=== PATIENT | male | born 1960 | race Caucasian/White ===

== ENCOUNTER → 2018-01-01 | Outpatient (CLI) | payer OTHER | LOC: CIMAGING 13:50 | PROVIDERS: ATTEND Family Medicine | DX: R07.9 Chest pain, unspecified (principal); R91.8 Other nonspecific abnormal finding of lung field | CPT/HCPCS: 71046-PO ==

== ENCOUNTER 2018-02-28 10:00 | Day surgery (SDC) | payer OTHER ==
[2018-02-27 15:02] LABS: INR 1.08 (0.83-1.16); PROTIME(PATIENT) 14.2 SEC (12.0-15.0)
[2018-02-28] MEDS ORDERED: NALOXONE HCL 0.4 MG/ML INJ ONE (10:16)
[2018-02-28] MEDS ORDERED: FLUMAZENIL 0.5 MG/5 ML MDV IVP ONE (10:16)
[2018-02-28] MEDS ORDERED: fentaNYL 100 MCG/2 ML INJ ONE (10:17)
[2018-02-28] MEDS ORDERED: MIDAZOLAM 2 MG/2 ML VIAL ONE (10:17)
[2018-02-28] MEDS ORDERED: MIDAZOLAM 2 MG/2 ML VIAL IVP PRN (10:23)
[2018-02-28] MEDS ORDERED: FLUMAZENIL 0.5 MG/5 ML MDV IVP PRN (10:23)
[2018-02-28] MEDS ORDERED: fentaNYL 100 MCG/2 ML INJ IVP PRN (10:23)
[2018-02-28] MEDS ORDERED: MEPERIDINE 25 MG/ML SYR IVP PRN (10:23)
[2018-02-28] MEDS ORDERED: NALOXONE HCL 0.4 MG/ML INJ IVP PRN (10:23)
[2018-02-28] MEDS ORDERED: NS 1,000 ML IV SCH (10:30)
--- NOTE | 2018-02-28 11:51 | PDPROPOC ---
Sedation Plan of Care Sedation Plan of Care: vital signs stable, mental status noted, patient educated of risks, benefits, alternatives, patient can tolerate sedation ASA Classification: ASA 2 Planned drugs: fentanyl, midazolam Mallampati Score: Class 3 Mallampati Reference Image:
--- NOTE | 2018-02-28 11:52 | PDGENHP ---
History & Physical Chief Complaint: lung nodule on CT History of Present Illness: asymptomatic prior to discovery of pleural nodule. Relevant Physical Exam: AOx3, NAD Cardiorespiratory Assessment: rrr, nl wob
[2018-02-28] MEDS ORDERED: LIDOCAINE 1% 300 MG/30 ML SDV ONE (12:01)
--- NOTE | 2018-02-28 13:09 | PDRADPN ---
Radiology Procedure Note Date of Procedure: 02/28/18 Radiologist: Romeo Blanton Anesthesia: IV Sedation, Local (Specify) Pre-op Diagnosis: RUL pleural nodule Post-op Diagnosis: same Indication: dx Procedure: ct GUIDED lung bx Finding(s): 1.5cm RUL pleural nodule. Three 18G cores submitted in formalin. No post bx pneumothorax. Inf/Abcess present in the surg proc area at time of surgery?: No Complications: none Specimen(s): Three 18G cores from central aspect of nodule.
[2018-02-28 15:31] VITALS: BP 102/56
== END 2018-02-28 15:25 | disposition home or self-care (01) ==
LOC: FIMAGING 10:00
PROVIDERS: ATTEND Internal Medicine Pulmonary Disease
PROC: 0BBC3ZX Excision of Right Upper Lung Lobe, Percutaneous Approach, Diagnostic (ICD-10-PCS; principal; 2018-02-28 13:11)
DX: R91.1 Solitary pulmonary nodule (principal)
CPT/HCPCS: J2250; J2310; J3010

== ENCOUNTER → 2018-05-01 | Outpatient (CLI) | payer OTHER | LOC: FIMAGING 13:09 | PROVIDERS: ATTEND Surgery | DX: R22.2 Localized swelling, mass and lump, trunk (principal) ==